=== PATIENT | male | born 1970 | race Caucasian/White ===

== ENCOUNTER 2022-07-08 00:50 | Inpatient (IN) | payer MEDICAID ==
[~2022-07-08] VITALS: Ht 185.4 cm; Wt 62.0 kg
[2022-07-08] MEDS ORDERED: normal saline 1000ml 1,000 ML IV ONE (01:30)
[2022-07-08] MEDS ORDERED: vancomycin/NS 1 GM ADD-VANTAGE 250 ML IV ONE (01:30)
[2022-07-08] MEDS ORDERED: iohexol 300mg/ml 100ml inj. ONE (01:50)
[2022-07-08] MEDS ORDERED: morphine 2 MG/ML inj. syringe IV ONE (02:40)
[2022-07-08 02:48] LABS: BASOPHILS # (AUTO) 0.1 X10'3 (0-0.2); EOSINOPHILS # (AUTO) 0.2 X10'3 (0-0.9); EOSINOPHILS % (AUTO) 1.2 % (0-6); MEAN CORPUSCULAR HGB CONC 34.3 g/dL (33.0-36.5); MONOCYTES # (AUTO) 1.4 X10'3 (0-0.9); NEUTROPHILS # (AUTO) 14.7 X10'3 (1.8-7.7)
[2022-07-08 02:51] LABS: BASOPHILS % (AUTO) 0.4 % (0-1); HEMATOCRIT 36.6 % (42.0-52.0); HEMOGLOBIN 12.6 g/dl (14.0-17.9); LYMPHOCYTES # (AUTO) 0.8 X10'3 (1.1-4.8); LYMPHOCYTES % (AUTO) 4.7 % (21-51); MEAN CORPUSCULAR HEMOGLOBIN 30.3 PG (27.0-31.0); MEAN CORPUSCULAR VOLUME 88.4 FL (78-98); MEAN PLATELET VOLUME 9.3 FL (7.4-10.4); MONOCYTES % (AUTO) 8.3 % (2-12); NEUTROPHILS % (AUTO) 85.4 % (42-75); PLATELET COUNT 258 X10'3 (140-440); RED BLOOD COUNT 4.15 X10'6 (4.70-6.10); RED CELL DISTRIBUTION WIDTH 12.5 % (11.5-14.5); WHITE BLOOD COUNT 17.3 X10'3 (4.5-11.0)
[2022-07-08 03:29] LABS: ALANINE AMINOTRANSFERASE 27 U/L (12-78); ALBUMIN 2.8 G/DL (3.4-5.0); ALBUMIN/GLOBULIN RATIO 0.7 (1.1-1.5); ALKALINE PHOSPHATASE 78 IU/L (46-116); ANION GAP 6 (8-16); ASPARTATE AMINO TRANSFERASE 19 U/L (10-37); BILIRUBIN,TOTAL 0.4 MG/DL (0.1-1.0); BLOOD UREA NITROGEN 11 MG/DL (7-18); BUN/CREATININE RATIO 10.8 (5.4-32.0); CALCIUM 9.2 MG/DL (8.5-10.1); CHLORIDE 101 MMOL/L (99-107); CREATININE 1.02 MG/DL (0.60-1.10); GLUCOSE 106 MG/DL (70-104); POTASSIUM 3.7 MMOL/L (3.5-5.1); SODIUM 137 MMOL/L (135-145); TOTAL CARBON DIOXIDE 29.6 MMOL/L (24-32); TOTAL PROTEIN 7.1 G/DL (6.4-8.2); eGFR 76 ML/MIN
[2022-07-08 03:51] LABS: CLARITY,URINE CLEAR (Clear); COLOR,URINE YELLOW (Yellow); GLUCOSE, URINE NEGATIVE (Neg); KETONES,URINE NEGATIVE (Neg); LEUKOCYTE ESTERASE ,URINE NEGATIVE (Neg); NITRITES, URINE NEGATIVE (Neg); OCCULT BLOOD,URINE NEGATIVE (Neg); PROTEIN,URINE NEGATIVE (Neg)
[2022-07-08 03:54] LABS: UA COLLECTION TYPE NON-SPECIFIED
[2022-07-08] MEDS ORDERED: magnesium 4gm in 100ml NS 100 ML IV PRN (04:45)
[2022-07-08] MEDS ORDERED: morphine 2 MG/ML inj. syringe IV PRN (04:45)
[2022-07-08] MEDS ORDERED: magnesium Cl slow-release 64mg tablet PO PRN (04:45)
[2022-07-08] MEDS ORDERED: acetaminophen 325mg tablet PO PRN ×2 (04:45)
[2022-07-08] MEDS ORDERED: potassium Cl 20 mEq SR tablet PO PRN ×2 (04:45)
[2022-07-08] MEDS ORDERED: potassium Cl 40MEQ/1/2NS 520ml 520 ML IV PRN (04:45)
[2022-07-08] MEDS ORDERED: HYDROcodone/acetaminophen 5mg/325mg tablet PO PRN (04:45)
[2022-07-08] MEDS ORDERED: ondansetron/PF 4mg/2ml inj IV PRN (04:45)
[2022-07-08] MEDS ORDERED: glucagon, human recombinant 1mg kit SUBCUT PRN (05:35)
[2022-07-08] MEDS ORDERED: MESSAGE TO PHARMACY PO ONE (05:35)
[2022-07-08] MEDS ORDERED: insulin Lispro (HumaLOG) vial - multi-dose SQ SCH (05:35)
[2022-07-08] MEDS ORDERED: dextrose 50%-water 50ml dispensing syringe IV PRN ×2 (05:35)
[2022-07-08] MEDS ORDERED: DEXTROSE 15 GM of carb/4 tabs (each vial/BOTTLE has 4 tablets) PO PRN ×2 (05:35)
[2022-07-08] MEDS: normal saline 1000ml 1,000 ML IV SCH ×3 (06:12→22:27)
[2022-07-08] MEDS ORDERED: piperacillin/tazo 4.5gm/100ml 100 ML IV SCH (08:00)
[2022-07-08] MEDS: K and/or MAG REPLACEMENT MC SCH ×2 (08:00→19:53)
[2022-07-08] MEDS ORDERED: vancomycin/NS 1 GM ADD-VANTAGE 250 ML IV SCH (10:00)
[2022-07-08 10:14] LABS: HEMOGLOBIN A1C 5.5 % (4.5-6.2)
[2022-07-08] MEDS: nicotine 14mg patch - 24hr TD SCH (11:09)
[2022-07-08] MEDS: heparin, porcine 5000 units/ml vial SQ SCH ×2 (11:09→19:57)
[2022-07-08 11:45] LABS: URINE AMPHETAMINE SCREEN POSITIVE (Neg); URINE BARBITUATE SCREEN NEGATIVE (Neg); URINE BENZODIAZEPINES SCREEN NEGATIVE (Neg); URINE CANNABINOID SCREEN NEGATIVE (Neg); URINE COCAINE SCREEN NEGATIVE (Neg); URINE METHADONE SCREEN NEGATIVE (Neg); URINE OPIATE SCREEN POSITIVE (Neg); URINE PHENCYCLIDINE SCREEN NEGATIVE (Neg)
[2022-07-08] MEDS ORDERED: NO HOME MEDS (11:47)
[2022-07-08] MEDS: vancomycin/NS 1 GM ADD-VANTAGE 250 ML IV SCH (16:50)
[2022-07-08 18:00] VITALS: BP 92/45
--- NOTE | 2022-07-08 18:24 | NUR ---
Patient came from the ER at 1745 via gurney. We transferred him into bed and patient is resting comfortably. Will transfer care to director of hotel nurse.
--- NOTE | 2022-07-08 18:34 | NUR ---
Problems reprioritized. Patient report given, questions answered & plan of care reviewed with MARCIE Quesada.
[2022-07-08] MEDS: morphine 2 MG/ML inj. syringe IV PRN (18:38)
--- NOTE | 2022-07-08 18:54 | NUR ---
Patient in room [facility] 357. I have received report from VIKRAM JACK and had the opportunity to ask questions and assume patient care.
[2022-07-08] MEDS: piperacillin/tazobactam inj. 3.375 GM in NS 50ml IV SCH (19:57)
[2022-07-08] MEDS ORDERED: temazepam 15mg capsule PO PRN (21:00)
[2022-07-08] MEDS ORDERED: insulin glargine (Lantus) pen - multi-dose SQ SCH (21:00)
[2022-07-08] MEDS: HYDROcodone/acetaminophen 10/325mg tab PO PRN (22:25)
[2022-07-09] VITALS (21 sets, daily range): BP systolic 94–130; BP diastolic 48–79
[2022-07-09] MEDS: vancomycin/NS 1 GM ADD-VANTAGE 250 ML IV SCH (01:47)
[2022-07-09] MEDS: piperacillin/tazobactam inj. 3.375 GM in NS 50ml IV SCH ×3 (03:32→20:36)
[2022-07-09] MEDS: morphine 2 MG/ML inj. syringe IV PRN (03:36)
[2022-07-09 06:32] LABS: BASOPHILS # (AUTO) 0.1 X10'3 (0-0.2); BASOPHILS % (AUTO) 0.6 % (0-1); EOSINOPHILS # (AUTO) 0.4 X10'3 (0-0.9); EOSINOPHILS % (AUTO) 2.8 % (0-6); HEMATOCRIT 40.7 % (42.0-52.0); HEMOGLOBIN 13.5 g/dl (14.0-17.9); LYMPHOCYTES # (AUTO) 1.3 X10'3 (1.1-4.8); LYMPHOCYTES % (AUTO) 8.5 % (21-51); MEAN CORPUSCULAR HEMOGLOBIN 30.2 PG (27.0-31.0); MEAN CORPUSCULAR HGB CONC 33.2 g/dL (33.0-36.5); MEAN CORPUSCULAR VOLUME 90.8 FL (78-98); MEAN PLATELET VOLUME 9.7 FL (7.4-10.4); MONOCYTES # (AUTO) 1.5 X10'3 (0-0.9); MONOCYTES % (AUTO) 9.3 % (2-12); NEUTROPHILS # (AUTO) 12.3 X10'3 (1.8-7.7); NEUTROPHILS % (AUTO) 78.8 % (42-75); PLATELET COUNT 250 X10'3 (140-440); RED BLOOD COUNT 4.48 X10'6 (4.70-6.10); RED CELL DISTRIBUTION WIDTH 12.9 % (11.5-14.5); WHITE BLOOD COUNT 15.6 X10'3 (4.5-11.0)
--- NOTE | 2022-07-09 06:42 | NUR ---
Problems reprioritized. Patient report given, questions answered & plan of care reviewed with MARCIE VIVAR.
--- NOTE | 2022-07-09 07:00 | NUR ---
Patient in room [facility] 357. I have received report from Sangita and had the opportunity to ask questions and assume patient care.
[2022-07-09 07:04] LABS: ALANINE AMINOTRANSFERASE 20 U/L (12-78); ALBUMIN 2.4 G/DL (3.4-5.0); ALBUMIN/GLOBULIN RATIO 0.6 (1.1-1.5); ALKALINE PHOSPHATASE 80 IU/L (46-116); ANION GAP 9 (8-16); ASPARTATE AMINO TRANSFERASE 17 U/L (10-37); BILIRUBIN,TOTAL 0.4 MG/DL (0.1-1.0); BLOOD UREA NITROGEN 12 MG/DL (7-18); BUN/CREATININE RATIO 13.2 (5.4-32.0); CHLORIDE 102 MMOL/L (99-107); CREATININE 0.91 MG/DL (0.60-1.10); GLUCOSE 69 MG/DL (70-104); POTASSIUM 3.8 MMOL/L (3.5-5.1); SODIUM 140 MMOL/L (135-145); TOTAL PROTEIN 6.6 G/DL (6.4-8.2); eGFR 87 ML/MIN
[2022-07-09] MEDS ORDERED: sevoflurane 250ml liquid IH ONE (07:46)
[2022-07-09] MEDS ORDERED: proCHLORperazine 10 MG/2 ml inj IV PRN (07:55)
[2022-07-09] MEDS ORDERED: hydrALAZINE 20mg/ml inj. IV PRN (07:55)
[2022-07-09] MEDS ORDERED: meperidine/PF 25mg/ml syringe IV PRN (07:55)
[2022-07-09] MEDS ORDERED: morphine 4 MG/ML inj SYRINge IV PRN (07:55)
[2022-07-09] MEDS ORDERED: ketorolac trometh. 30mg/ml inj. IV ONE (07:55)
[2022-07-09] MEDS ORDERED: midazolam 1 mg/ML 2ml injection ONE (07:55)
[2022-07-09] MEDS ORDERED: HYDROmorphone/PF 0.2 MG/ML SYRINGE IV PRN ×2 (07:55)
[2022-07-09] MEDS ORDERED: ondansetron/PF 4mg/2ml inj IV PRN (07:55)
[2022-07-09] MEDS ORDERED: acetaminophen 1,000mg/100ml IV 100 ML IV PRN (07:55)
[2022-07-09] MEDS ORDERED: ringers solution, lacted 1,000 ML IV SCH (07:55)
[2022-07-09] MEDS ORDERED: morphine 2 MG/ML inj. syringe IV PRN (07:55)
[2022-07-09] MEDS ORDERED: labetalol 20mg/4ml (5mg/ml) syringe IV PRN (07:55)
[2022-07-09] MEDS ORDERED: fentaNYL /PF 50mcg/ml 5ml ampule ONE (07:57)
[2022-07-09] MEDS: nicotine 14mg patch - 24hr TD SCH (08:00)
[2022-07-09] MEDS: heparin, porcine 5000 units/ml vial SQ SCH ×2 (08:00→20:36)
[2022-07-09] MEDS: K and/or MAG REPLACEMENT MC SCH ×2 (08:00→20:00)
[2022-07-09] MEDS ORDERED: LIDOcaine 2% (20mg/ml) 5ml vial ONE (08:05)
[2022-07-09] MEDS ORDERED: dexamethasone sod phosphate 4mg/ml inj. ONE (08:05)
[2022-07-09] MEDS ORDERED: propofol inj 20 ML IV ONE (08:05)
[2022-07-09] MEDS ORDERED: ondansetron/PF 4mg/2ml inj ONE (08:06)
--- NOTE | 2022-07-09 08:41 | NUR ---
Received from OR via HOSPITAL BED, accompanied by Anesthesiologist DR BRAVO and report given by Anesthesiolgist. PT PRESENTS WITH 20G LEFT AC, LEFT FOOT DRESSING WITH LILLIAN WRAP CDI, PT PREANTS WITH ORAL AIRWAY. VSS. Addendum: 07/09/22 at 0924 by Karen Pride RN, RN Amended: Links added.
--- NOTE | 2022-07-09 09:14 | NUR ---
Noted pt w/ low BMI using non scaled wt, no reliable recent wt hx in EMR. Pt denies any recent wt loss or decrease in appetite per MST. Currently on Regular diet w/ 100% intake of first meal. Will continue to monitor. Addendum: 07/09/22 at [address] Amended: Links added.
--- NOTE | 2022-07-09 09:19 | NUR ---
ORAL AIRWAT REMOVES, PT SPO2 98% RA. Addendum: 07/09/22 at 0924 by Karen Pride RN, RN Amended: Links added.
--- NOTE | 2022-07-09 09:48 | NUR ---
Patient in room [facility] 357. I have received report from Sakina in recovery and had the opportunity to ask questions and assume patient care.
--- NOTE | 2022-07-09 09:51 | NUR ---
patient meets discharge criteria. vss. on room air. patient states comfort. called report to MARCIE Leal RN at bedside. bed locked and lowered. call light within reach. v/s started. Addendum: 07/09/22 at 1008 by Sakina Argueta RN Amended: Links added.
[2022-07-09] MEDS ORDERED: VANCOMYCIN LEVEL IV ONE (13:30)
[2022-07-09] MEDS: normal saline 1000ml 1,000 ML IV SCH ×2 (13:31→23:34)
[2022-07-09] MEDS: VANCOmycin 1250MG/NS 250ml Bag 250 ML IV SCH (16:41)
[2022-07-09] MEDS: HYDROcodone/acetaminophen 10/325mg tab PO PRN (17:19)
--- NOTE | 2022-07-09 18:15 | NUR ---
Problems reprioritized. Patient report given, questions answered & plan of care reviewed with
[2022-07-10 02:00] VITALS: BP 104/64
[2022-07-10] MEDS: VANCOmycin 1250MG/NS 250ml Bag 250 ML IV SCH ×2 (03:38→16:14)
[2022-07-10] MEDS: piperacillin/tazobactam inj. 3.375 GM in NS 50ml IV SCH ×2 (04:51→12:58)
[2022-07-10 06:04] LABS: BASOPHILS % (AUTO) 0.3 % (0-1); EOSINOPHILS % (AUTO) 0.1 % (0-6); HEMATOCRIT 38.4 % (42.0-52.0); HEMOGLOBIN 13.1 g/dl (14.0-17.9); LYMPHOCYTES # (AUTO) 0.9 X10'3 (1.1-4.8); LYMPHOCYTES % (AUTO) 4.9 % (21-51); MEAN CORPUSCULAR HEMOGLOBIN 30.4 PG (27.0-31.0); MEAN CORPUSCULAR HGB CONC 34.2 g/dL (33.0-36.5); MEAN CORPUSCULAR VOLUME 88.8 FL (78-98); MEAN PLATELET VOLUME 9.3 FL (7.4-10.4); MONOCYTES % (AUTO) 5.4 % (2-12); NEUTROPHILS # (AUTO) 16.5 X10'3 (1.8-7.7); NEUTROPHILS % (AUTO) 89.3 % (42-75); PLATELET COUNT 296 X10'3 (140-440); RED BLOOD COUNT 4.33 X10'6 (4.70-6.10); RED CELL DISTRIBUTION WIDTH 12.6 % (11.5-14.5); WHITE BLOOD COUNT 18.5 X10'3 (4.5-11.0)
--- NOTE | 2022-07-10 06:12 | NUR ---
Patient report given, questions answered & plan of care reviewed with Lauren JACK
[2022-07-10 06:13] LABS: ALANINE AMINOTRANSFERASE 22 U/L (12-78); ALBUMIN/GLOBULIN RATIO 0.5 (1.1-1.5); ALKALINE PHOSPHATASE 92 IU/L (46-116); ANION GAP 8 (8-16); ASPARTATE AMINO TRANSFERASE 18 U/L (10-37); BILIRUBIN,TOTAL 0.3 MG/DL (0.1-1.0); BLOOD UREA NITROGEN 18 MG/DL (7-18); BUN/CREATININE RATIO 20.9 (5.4-32.0); CALCIUM 9.1 MG/DL (8.5-10.1); CHLORIDE 104 MMOL/L (99-107); CREATININE 0.86 MG/DL (0.60-1.10); GLUCOSE 106 MG/DL (70-104); SODIUM 139 MMOL/L (135-145); TOTAL CARBON DIOXIDE 27.5 MMOL/L (24-32); TOTAL PROTEIN 6.3 G/DL (6.4-8.2); eGFR > 90 ML/MIN
--- NOTE | 2022-07-10 06:23 | NUR ---
Patient in room [facility] 357. I have received report from December and had the opportunity to ask questions and assume patient care.
[2022-07-10 06:34] VITALS: BP 110/61
[2022-07-10 06:40] LABS: POTASSIUM 4.5 MMOL/L (3.5-5.1)
[2022-07-10] MEDS: K and/or MAG REPLACEMENT MC SCH (08:00)
[2022-07-10] MEDS: nicotine 14mg patch - 24hr TD SCH (08:35)
[2022-07-10] MEDS: heparin, porcine 5000 units/ml vial SQ SCH (08:37)
[2022-07-10] MEDS: HYDROcodone/acetaminophen 10/325mg tab PO PRN ×2 (08:41→15:01)
[2022-07-10] MEDS: normal saline 1000ml 1,000 ML IV SCH ×2 (10:52→16:45)
[2022-07-10 11:58] VITALS: BP 99/48
[2022-07-10] MEDS: morphine 2 MG/ML inj. syringe IV PRN (13:02)
--- NOTE | 2022-07-10 17:17 | NUR ---
Student documentation: I have reviewed and agree with all interventions, medication administration per hospital protocol and assessments performed and documented by student from [facility].
--- NOTE | 2022-07-10 18:14 | NUR ---
Problems reprioritized. Patient report given, questions answered & plan of care reviewed with
--- NOTE | 2022-07-10 19:45 | NUR ---
paged. No response. Pt wanted to leave now. Pt signed all AMA forms. Educated pt on risks of infection and leaving AMA. Pt pulled IV out. Pressure dressing applied. Pt left the floor [id number]
[2022-07-11] MEDS ORDERED: VANCOMYCIN LEVEL IV ONE (02:30)
== END 2022-07-10 19:30 | disposition left against medical advice (07) | DRG 710 ==
LOC: ER 00:51 → ED HOLD 04:45 → SUR 3N 17:42
PROVIDERS: ADMIT Internal Medicine; ATTEND Family Medicine
PROC: BQ2S1ZZ Computerized Tomography (CT Scan) of Left Lower Extremity using Low Osmolar Contrast (ICD-10-PCS; principal; 2022-07-08)
PROC: 0J9R0ZZ Drainage of Left Foot Subcutaneous Tissue and Fascia, Open Approach (ICD-10-PCS; 2022-07-09)
DX: A41.9 Sepsis, unspecified organism (principal); L03.116 Cellulitis of left lower limb; F15.10 Other stimulant abuse, uncomplicated; F17.210 Nicotine dependence, cigarettes, uncomplicated; G89.29 Other chronic pain; L02.612 Cutaneous abscess of left foot; Z20.822 Contact with and (suspected) exposure to COVID-19; I10 Essential (primary) hypertension; M10.9 Gout, unspecified; Z53.29 Procedure and treatment not carried out because of patient's decision for other reasons; Z71.6 Tobacco abuse counseling; Z71.51 Drug abuse counseling and surveillance of drug abuser
CPT/HCPCS: 36415; 73630; 73701; 80053; 80202; 80305; 81003; 82948; 83036; 83605; 84145; 85025; 87040; 87070; 87075; 87077; 87081; 87102; 87186; 87811; 93005; 99285; A4618; A6446; A6449; A7000; G0378; J1100; J1644; J1815; J2250; J2270; J2405; J2543; J2704; J3010; J3370; J3490; J7030; J7040; J7120; Q9967